=== PATIENT | male | born 1960 | race Caucasian/White ===

== ENCOUNTER → 2016-09-20 | Outpatient (REF) | payer BC | LOC: M LAB REF 11:15 | PROVIDERS: ATTEND Internal Medicine Medical Oncology | DX: C92.10 Chronic myeloid leukemia, BCR/ABL-positive, not having achieved remission (principal) ==

== ENCOUNTER → 2017-01-18 | Outpatient (REF) | payer BC | LOC: M LAB REF 12:54 | PROVIDERS: ATTEND Internal Medicine Medical Oncology | DX: C92.10 Chronic myeloid leukemia, BCR/ABL-positive, not having achieved remission (principal) ==

== ENCOUNTER → 2017-09-26 | Outpatient (REF) | payer BC | LOC: M LAB REF 12:51 | DX: C92.90 Myeloid leukemia, unspecified, not having achieved remission (principal) ==

== ENCOUNTER → 2017-12-04 | Outpatient (REF) | payer BC ==
[2017-12-04 18:41] LABS: TOTAL PROTEIN,RANDOM URINE 17.4 MG/DL (0.0-12.0)
== END ==
LOC: M LAB REF 17:04
DX: R80.9 Proteinuria, unspecified (principal)
CPT/HCPCS: 84156

== ENCOUNTER → 2018-04-11 | Outpatient (REF) | payer BC | LOC: M LAB REF 13:04 | DX: C93.11 Chronic myelomonocytic leukemia, in remission (principal) | CPT/HCPCS: 88300 ==

== ENCOUNTER → 2024-10-24 | Outpatient (CLI) | payer BC, MEDICARE ==
[~2024-10-24] MED LIST: AMBI12.52 PO; AMIO200T49; ASPI81TA26 PO; ATOR40TA75 PO; ATOR80TA59; BASA100I SC; BUME1TAB3; EFFE150C3 PO; ELIQ5TAB; EQ 8650T PO; FAMO1TAB11 PO; FISH1000 PO; HYDR50TA46 PO; IMAT100T PO; JARD1TAB; LORA1TAB23 PO; MELA5CAP2 PO; METF10004 PO; METO1TAB33; MULT-90 PO; MULTCAP PO; OXYC-517; POTA10809 PO; TASI150C PO; TIRZ10PE SQ; TIRZ12.5; TIRZ15PE; TIRZ7.5P; TRUL0.5I SC; TRUL10IN SC; VALS160T3 PO; VITA100054 PO; VITA100066 PO; VITA100093 PO
== END ==
LOC: M RAD 14:06
PROVIDERS: ATTEND Physician Assistant
DX: I73.9 Peripheral vascular disease, unspecified (principal)